=== PATIENT | male | born 1985 | race Caucasian/White ===

== ENCOUNTER 2018-03-27 20:10 | Emergency (ER) | payer OTHER, MEDICAID, SELFPAY ==
[2018-03-27 20:26] VITALS: BP 136/86; PULSE 110; RESP 20; TEMP 37; O2SAT 95; BMI 25.0
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
[2018-03-27 21:30] VITALS: BP 144/71; PULSE 117; O2SAT 94
[2018-03-27 22:08] VITALS: PULSE 98; O2SAT 96
== END 2018-03-27 22:09 | disposition home or self-care (01) ==
PROVIDERS: Emergency Provider Nurse Practitioner Family
DX: S01.01XA Laceration without foreign body of scalp, initial encounter (principal); S06.0X9A Concussion with loss of consciousness of unspecified duration, initial encounter; V18.4XXA Pedal cycle driver injured in noncollision transport accident in traffic accident, initial encounter
CPT/HCPCS: 12002; 70450; 72125; 99283; 99284

== ENCOUNTER → 2018-11-26 11:46 | Outpatient (CLI) | payer OTHER, MEDICAID, SELFPAY | PROVIDERS: Visit Provider Physician Assistant | DX: B99.9 Unspecified infectious disease (principal) | CPT/HCPCS: 87070; 87077; 87147; 87186; 87205 ==

== ENCOUNTER 2019-03-19 08:10 | Emergency (ER) | payer OTHER, MEDICAID, SELFPAY ==
[2019-03-19 08:17] VITALS: BP 125/45; PULSE 56; RESP 18; TEMP 36.4; O2SAT 95
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
== END 2019-03-19 08:50 | disposition home or self-care (01) ==
PROVIDERS: Emergency Provider Emergency Medicine
DX: L02.414 Cutaneous abscess of left upper limb (principal)
CPT/HCPCS: 99282; 99283

== ENCOUNTER 2019-03-20 09:18 | Emergency (ER) | payer OTHER, MEDICAID, SELFPAY ==
[2019-03-20 09:28] VITALS: BP 124/75; PULSE 95; RESP 62; TEMP 36.8; O2SAT 95
[2019-03-20] MEDS: SODIUM CHLORIDE 0.9% 1,000 ML 1000 ML IV (09:53)
--- NOTE | 2019-03-20 09:54 | ED_ITS ---
HPI - Skin/Abscess/Foreign Bdy General Chief complaint: Skin/Abscess/Foreign Body Stated complaint: Infection Lt arm Time Seen by Provider: 03/20/19 09:19 Source: patient Mode of arrival: ambulatory Limitations: no limitations History of Present Illness HPI narrative: Patient is a 33-year-old male who presents with streaking up his left arm. Actually saw and evaluated him yesterday for an abscess which was obtained eat. He has now had 3 doses of Bactrim. This morning he noticed red streaking up his arm into his axilla. He denies any fevers or sweats. Unfortunately no culture was taken yesterday off it with a small abscess. He is not exactly sure when the streaking started as he was wearing a sweater all day. He is complaining that has arm aches. MD complaint: rash Location: LUE Context: none Associated symptoms: denies other symptoms Related Data Previous Rx's Medication Instructions Recorded sulfamethoxazole-trimethoprim 1 tab PO BID 7 Days #14 tab 03/19/19 [Bactrim DS] Allergies Allergy/AdvReac Type Severity Reaction Status Date / Time oxycodone [From PERCOCET] Allergy Intermediate Swollen, Verified 03/20/19 09:32 hives, itchy acetaminophen [From VICODIN] Allergy Mild Hives Verified 03/20/19 09:32 aspirin [ASPIRIN] Allergy Mild Hives Verified 03/20/19 09:32 hydrocodone [From VICODIN] Allergy Mild Hives, Verified 03/20/19 09:32 itchy ibuprofen [IBUPROFEN] Allergy Mild hives Verified 03/20/19 09:32 shellfish derived Allergy Mild Hives Verified 03/20/19 09:32 [SHELLFISH DERIVED] Review of Systems Review of Systems ROS Unobtainable: All systems reviewed & are unremarkable except as noted in HPI and below Constitutional Denies chills, Denies fever(s), Denies lethargy and Denies weakness Eyes Denies change in vision, Denies eye discharge, Denies irritation and Denies loss of vision Cardiovascular Denies chest pain, Denies irregular heart rhythm, Denies lightheadedness, Denies palpitations, Denies dyspnea, Denies dyspnea on exertion and Denies orthopnea Respiratory Denies cough, Denies dyspnea, Denies dyspnea on exertion and Denies wheezing Gastrointestinal Gastrointestinal: Denies abdominal pain, Denies change in bowel habits, Denies diarrhea, Denies nausea and Denies vomiting Genitourinary Denies hematuria, Denies flank pain, Denies urinary incontinence and Denies urinary urgency Musculoskeletal Denies back pain, Denies muscle weakness, Denies numbness and Denies tingling Integumentary/Breasts Reports as per HPI Neurologic Denies loss of vision, Denies numbness, Denies tingling and Denies weakness Endocrine Denies palpitations Allergic/Immunologic Denies wheezing [facility] Medical History Patient denies significant medical history (Acute) Social History Smoking Status: Former smoker alcohol intake: current Social History Smoking Status: Former smoker alcohol intake: current Exam Initial Vital Signs Initial Vital Signs: Vital Signs Temperature 98.3 F 03/20/19 09:28 Pulse Rate 95 H 03/20/19 09:28 Respiratory Rate 62 H 03/20/19 09:28 Blood Pressure 124/75 03/20/19 09:28 Pulse Oximetry 95 03/20/19 09:28 GENERAL: Well-appearing, well-nourished and in no acute distress. HEENT: Head atraumatic,EOMI, pupils reactive, face symmetric, moist mucous membranes CARDIOVASCULAR: Regular rate and rhythm without murmurs, rubs or gallops. RESPIRATORY: Breath sounds equal bilaterally, no wheezes rales or rhonchi. ABDOMEN: Soft, nontender. Normoactive bowel sounds all 4 quadrants. No guarding or rebound. EXTREMITIES: Normal range of motion, no clubbing or edema. Neurovascularly intact NEUROLOGICAL: Alert and oriented x4.Normal gait and speech. Cranial nerves II through XII grossly intact. SKIN: Abscess still noted on right wrist area. He does have some gross pus at the site. Culture now taken. He now has streaking of up the medial side into his axilla. Course Orders Ordered: ED Orders 03/20/19 09:30 Wound Culture and Gram Stain Stat 03/20/19 09:35 Partial Thromboplastin Time Stat Prothrombin Time INR Stat 03/20/19 09:41 Complete Blood Count AUTO DIFF Stat Comprehensive Metabolic Panel Stat Lactate (Lactic Acid) Stat Lipase Stat Procalcitonin Stat 03/20/19 10:18 Blood Culture Stat Discontinued Medications Diphenhydramine HCl (Benadryl) 25 mg IV NOW ONE Stop: 03/20/19 11:39 Last Admin: 03/20/19 11:45 Dose: 25 mg Sodium Chloride (Normal Saline 0.9%) 1,000 mls @ 1,000 mls/hr IV BOLUS ONE Stop: 03/20/19 10:34 Last Infusion: 03/20/19 10:55 Dose: 0 mls/hr Admin: 03/20/19 09:53 Dose: 1,000 mls/hr Vancomycin HCl 1,250 mg/ (Sodium Chloride) 250 mls @ 250 mls/hr IV NOW ONE Stop: 03/20/19 09:45 Last Infusion: 03/20/19 11:50 Dose: 0 mls/hr Admin: 03/20/19 10:38 Dose: 250 mls/hr Methylprednisolone (Solu-Medrol 125 Mg Vial) 125 mg IV NOW ONE Stop: 03/20/19 12:06 Last Admin: 03/20/19 12:06 Dose: 125 mg Vital Signs - 8 hr 03/20/19 09:28 03/20/19 12:15 Temperature 98.3 F Pulse Rate 95 H 84 Respiratory Rate 62 H 14 Blood Pressure 124/75 Blood Pressure [Right Arm] 125/70 Pulse Oximetry 95 98 MDM - Skin/Abscess/Foreign Bdy Lab Data Attestation: I reviewed the patient's lab results. Result diagrams: 03/20/19 09:41 03/20/19 09:41 Lab Results 03/20/19 03/20/19 03/20/19 Range/Units 09:41 09:41 09:41 WBC 7.9 (4.5-11.0) X10^3/uL RBC 5.18 (4.5-5.9) X10^6/uL Hgb 15.0 (13.5-17.5) g/dL Hct 45.5 (41-53) % MCV 87.7 (80-100) fL MCH 29.0 (26-34) PG MCHC 33.1 (30-36) % RDW 14.0 (11.6-14.8) % Plt Count 230 (150-400) X10^3/uL Neut % (Auto) 79.5 H (50-75) % Lymph % (Auto) 10.2 L (25-40) % [place] % (Auto) 8.5 (3-14) % Eos % (Auto) 1.3 L (2-4) % Baso % (Auto) 0.5 (0-2) % Neut # (Auto) 6300 (3149-9703) /uL Lymph # (Auto) 800 L (5927-1353) /uL [place] # (Auto) 700 (0-900) /uL Eos # (Auto) 100 (0-450) /uL Baso # (Auto) 0 (0-100) /uL Sodium 142 (137-145) mmol/L Potassium 4.3 (3.4-5.1) mmol/L Chloride 104 (98-107) mmol/L Carbon Dioxide 27 (22-32) mmol/L BUN 14 (9-20) mg/dL Creatinine 1.10 (0.66-1.25) mg/dL Estimated GFR > 60.0 (>60) mL/min BUN/Creatinine Ratio 12.7 (6-22) Glucose 103 H (70-100) mg/dL Lactate (0.7-2.1) mmol/L Calcium 9.5 (8.4-10.2) mg/dL Total Bilirubin 0.6 (0.2-1.3) mg/dL AST 25 (17-59) IU/L ALT 19 L (21-72) IU/L Alkaline Phosphatase 94 (38-126) U/L Total Protein 8.0 (6.3-8.2) g/dL Albumin 4.5 (3.5-5.0) g/dL Globulin 3.5 (1.7-4.1) g/dL Albumin/Globulin Ratio 1.3 (1.0-2.8) Lipase 100 (23-300) U/L Procalcitonin < 0.05 (<0.5) ng/mL 03/20/19 Range/Units 09:41 WBC (4.5-11.0) X10^3/uL RBC (4.5-5.9) X10^6/uL Hgb (13.5-17.5) g/dL Hct (41-53) % MCV (80-100) fL MCH (26-34) PG MCHC (30-36) % RDW (11.6-14.8) % Plt Count (150-400) X10^3/uL Neut % (Auto) (50-75) % Lymph % (Auto) (25-40) % [place] % (Auto) (3-14) % Eos % (Auto) (2-4) % Baso % (Auto) (0-2) % Neut # (Auto) (5732-9902) /uL Lymph # (Auto) (2420-8180) /uL [place] # (Auto) (0-900) /uL Eos # (Auto) (0-450) /uL Baso # (Auto) (0-100) /uL Sodium (137-145) mmol/L Potassium (3.4-5.1) mmol/L Chloride (98-107) mmol/L Carbon Dioxide (22-32) mmol/L BUN (9-20) mg/dL Creatinine (0.66-1.25) mg/dL Estimated GFR (>60) mL/min BUN/Creatinine Ratio (6-22) Glucose (70-100) mg/dL Lactate 0.8 (0.7-2.1) mmol/L Calcium (8.4-10.2) mg/dL Total Bilirubin (0.2-1.3) mg/dL AST (17-59) IU/L ALT (21-72) IU/L Alkaline Phosphatase (38-126) U/L Total Protein (6.3-8.2) g/dL Albumin (3.5-5.0) g/dL Globulin (1.7-4.1) g/dL Albumin/Globulin Ratio (1.0-2.8) Lipase (23-300) U/L Procalcitonin (<0.5) ng/mL MDM Narrative Medical decision making narrative: Patient is not septic he has gotten 1 dose of IV vancomycin in the emergency department. A work again tomorrow I recommended that he return tomorrow for re-evaluation 1st thing in the morning. He agrees to come back. Wound culture pending and blood cultures pending. Patient did get red man syndrome with vancomycin. I his entire abdomen started turning red. He was given Solu-Medrol and Benadryl. However this was not noted to vancomycin arm done. Discharge Plan Departure Patient Disposition: Home Clinical Impression: Cellulitis Qualifiers: Site of cellulitis: extremity Site of cellulitis of extremity: upper extremity Laterality: left Qualified Code(s): L03.114 - Cellulitis of left upper limb Discharge Date/Time: 03/20/19 12:22 Interventions: ED Discharge Assessment Last Done: 03/20/19 12:21 Instructions: DI for Cellulitis -- Adult Activity Restrictions/Additional Instructions: *You have been diagnosed with cellulitis left *What to do: You to return tomorrow for evaluation 1st thing in the morning around 7:00 a.m.. *Continue to take medications as directed Continue Bactrim as previously prescribed *Follow up with your primary care provider in 2-3 days *Return to ER if you should have fever, worsening redness or any new, worsening or concerning symptoms Prescriptions: No Action sulfamethoxazole-trimethoprim [Bactrim DS] 800-160 mg tablet 1 tab PO BID 7 Days Qty: 14 RF: 0
[2019-03-20 10:03] LABS: Add Manual Diff / Slide Review NO; Basophils Absolute Auto 0 /uL (0-100); Basophils Percent Auto 0.5 % (0-2); Eosinophils Absolute Auto 100 /uL (0-450); Eosinophils Percent Auto 1.3 % (2-4); Hematocrit 45.5 % (41-53); Lymphocytes Absolute Auto 800 /uL (1100-4500); Lymphocytes Percent Auto 10.2 % (25-40); Mean Corpuscular HGB Conc 33.1 % (30-36); Mean Corpuscular Volume 87.7 fL (80-100); Monocytes Absolute Auto 700 /uL (0-900); Monocytes Percent Auto 8.5 % (3-14); Neutrophils Absolute Auto 6300 /uL (1500-7000); Neutrophils Percent Auto 79.5 % (50-75); Platelet Count 230 X10^3/uL (150-400); Red Blood Cell Count 5.18 X10^6/uL (4.5-5.9); White Blood Cell Count 7.9 X10^3/uL (4.5-11.0)
[2019-03-20 10:09] LABS: Lactate (Lactic Acid) 0.8 mmol/L (0.7-2.1)
[2019-03-20 10:12] LABS: Alanine Aminotransferase 19 IU/L (21-72); Albumin 4.5 g/dL (3.5-5.0); Albumin Globulin Ratio 1.3 (1.0-2.8); Alkaline Phosphatase 94 U/L (38-126); Aspartate Aminotransferase 25 IU/L (17-59); BUN Creatinine Ratio 12.7 (6-22); Bilirubin Total 0.6 mg/dL (0.2-1.3); Blood Urea Nitrogen 14 mg/dL (9-20); Calcium 9.5 mg/dL (8.4-10.2); Carbon Dioxide 27 mmol/L (22-32); Chloride 104 mmol/L (98-107); Estimated Glomerular Filt Rate > 60.0 mL/min (>60); Globulin 3.5 g/dL (1.7-4.1); Glucose 103 mg/dL (70-100); HEMOLYSIS < 15 (0-50); Lipase 100 U/L (23-300); Potassium 4.3 mmol/L (3.4-5.1); Sodium 142 mmol/L (137-145)
[2019-03-20 10:34] LABS: Procalcitonin < 0.05 ng/mL (<0.5)
[2019-03-20] MEDS: VANCOMYCIN 1,250 MG in SODIUM CHLORIDE 0.9% 250 ML IV (10:38)
[2019-03-20] MEDS: diphenhydrAMINE 50 MG/ML VIAL 25 MG IV (11:45)
[2019-03-20] MEDS: methylPREDNISolone 125 MG/2 ML VIAL IV (12:06)
[2019-03-20 12:15] VITALS: BP 125/70; PULSE 84; RESP 14; O2SAT 98
== END 2019-03-20 12:22 | disposition home or self-care (01) ==
PROVIDERS: Emergency Provider Emergency Medicine
DX: L03.114 Cellulitis of left upper limb (principal)
CPT/HCPCS: 36415; 36591; 80053; 83605; 83690; 84145; 85025; 87040; 87070; 87075; 87077; 87186; 87205; 96361; 96365; 96375; 99283; 99284; J1200; J2930

== ENCOUNTER 2020-02-18 10:50 | Emergency (ER) | payer OTHER, MEDICAID, SELFPAY ==
--- NOTE | 2020-02-18 10:56 | DI.RAD.S_ITS ---
PROCEDURE: XR HAND RT MIN 3V INDICATIONS: table saw TECHNIQUE: 3 views of the hand(s) acquired. COMPARISON: None. FINDINGS: Bones: No dislocations. Carpal bones are normally aligned. No suspicious bony lesions. There is crush injury to the distal tuft of the fourth digit, best seen on the lateral projection, with overlying soft tissue swelling but no foreign body Soft tissues: No suspicious soft tissue calcifications. IMPRESSION: Crush injury, comminuted distal tuft fracture fourth distal phalanx. No foreign body. Dictated by: Ej Silva M.D. on 02/18/2020 at 11:22 Approved by: Ej Silva M.D. on 02/18/2020 at 11:22
[2020-02-18 10:57] VITALS: BP 114/53; PULSE 53; RESP 18; TEMP 36.5; O2SAT 100; BMI 27.3
--- NOTE | 2020-02-18 11:11 | ED.UPPEXIN ---
HPI - Extremity Injury (Upper) <DANIELLA Arteaga - Last Filed: 02/18/20 12:54> General Chief Complaint: Extremity Injury, Upper Stated Complaint: right hand fingers cut with saw Time Seen by Provider: 02/18/20 11:00 Source: patient Mode of arrival: Wheelchair Limitations: no limitations History of Present Illness HPI narrative: 34yo male presents to the ED for R anger injuries. Patient states he was using a table some when he cut his right 2nd, 3rd, and 4th fingers. Patient states he was cutting a fence when he reached crust his son in cut his fingers. Patient states I applied pressure to the area immediately and was taken to the hospital. She states the pain was significant and he vomited 2-[address] He denies any numbness, tingling, other injuries, head injury, elbow pain, wrist pain, or any other concerns. He denies taking any blood thinners. 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 Related Data Previous Rx's Medication Instructions Recorded cephalexin 500 mg PO QID 7 Days #28 cap 02/18/20 tramadol 50 mg PO Q8H PRN #7 tab 02/18/20 Allergies Allergy/AdvReac Type Severity Reaction Status Date / Time oxycodone [From PERCOCET] Allergy Intermediate Swollen, Verified 02/18/20 10:57 hives, itchy acetaminophen [From VICODIN] Allergy Mild Hives Verified 02/18/20 10:57 aspirin [ASPIRIN] Allergy Mild Hives Verified 02/18/20 10:57 hydrocodone [From VICODIN] Allergy Mild Hives, Verified 02/18/20 10:57 itchy ibuprofen [IBUPROFEN] Allergy Mild hives Verified 02/18/20 10:57 shellfish derived Allergy Mild Hives Verified 02/18/20 10:57 [SHELLFISH DERIVED] Review of Systems <DANIELLA Arteaga - Last Filed: 02/18/20 12:54> Review of Systems Narrative: REVIEW OF SYSTEMS: GENERAL: Denies fever or chills. HENT: Denies head trauma. EYE: Denies double vision or vision loss. CARDIOVASCULAR: Denies syncope. MUSCULOSKELETAL: Denies weakness, or deformities. INTEGUMENTARY: Complains of of lacerations to right pointer, middle, and ring finger. NEURO: Denies numbness or tingling. Patient History <DANIELLA Arteaga - Last Filed: 02/18/20 12:54> Medical History Patient denies significant medical history (Acute) Social History Smoking Status: Current every day smoker alcohol intake: current Smoking Status: Current every day smoker alcohol intake frequency: holidays/special occasions only Substance Use Type: marijuana Exam <DANIELLA Arteaga - Last Filed: 02/18/20 12:54> Initial Vital Signs Initial Vital Signs: Vital Signs Temperature 97.7 F 02/18/20 10:57 Pulse Rate 53 L 02/18/20 10:57 Respiratory Rate 18 02/18/20 10:57 Blood Pressure 114/53 L 02/18/20 10:57 Pulse Oximetry 100 02/18/20 10:57 PHYSICAL EXAMINATION: GENERAL: Well groomed, alert, and cooperative. Answers questions promptly and appropriately. Vital signs noted. HENT: Normocephalic, atraumatic. RESPIRATORY: Normal respiratory rate, trachea midline, airway patent. No stridor, nasal flaring or accessory muscle use. MUSCULOSKELETAL: Normal gait and coordination. Equal tone and mass bilaterally. EXTREMITIES: CMS intact. Moves all extremities. SKIN: Warm, dry, soft, appropriate color for ethnicity. Multiple avulsions noted to distal palmar aspect of 2nd, 3rd, and 4th digits. Index finger with 2-3 flap skin, 1 suture placed. Middle finger with a 2-3 laceration is approximately 1-3cm, 2 sutures placed. Multiple flaps of skin and avulsion. 4th finger with approximately 3 cm avulsion to tip of palmar aspect of finger not involving the nail, no sutures placed. No nail involvement to any fingers, no sublingual hematoma. Distal sensation intact, patient is able to bend and extend fingers against resistance. NEURO: Alert and Oriented X 3. Good coordination. PSYCH: Appropriate affect and mood. <Daniel Russell DO - Last Filed: 02/18/20 13:04> Initial Vital Signs Initial Vital Signs: Vital Signs Temperature 97.7 F 02/18/20 10:57 Pulse Rate 53 L 02/18/20 10:57 Respiratory Rate 18 02/18/20 10:57 Blood Pressure 114/53 L 02/18/20 10:57 Pulse Oximetry 100 02/18/20 10:57 Procedures <DANIELLA Arteaga - Last Filed: 02/18/20 12:54> Laceration Repair Laceration 1: Site: hand Side (If applicable): right Size (cm): 3 Description: linear, flap and irregular Depth: simple, single layer Local Anesthetic: bupivacaine 0.5% Amount of anesthesia used (mL): 10 Pre-repair: irrigated extensively Skin layer closed with: nylon (And Steri-Strips applied) Size (cm): 5-0 Number of sutures: 3 Technique: simple, interrupted Subcutaneous layer closed with: vicryl Course <DANIELLA Arteaga - Last Filed: 02/18/20 12:54> Course Course Narrative: Patient's wound irrigated extensively with over 800ml of normal saline. Sutures applied per procedure note. Orders Ordered: ED Orders 02/18/20 10:56 XR hand RT min 3V Stat Discontinued Medications Bupivacaine HCl (Sensorcaine 0.5%) 5 ml SUBCUT NOW ONE Stop: 02/18/20 11:35 Last Admin: 02/18/20 11:35 Dose: 5 ml Documented by: OBI Lidocaine HCl (Xylocaine 1% (Pf)) 4 ml INJ NOW ONE Stop: 02/18/20 11:01 Last Admin: 02/18/20 11:34 Dose: Not Given Documented by: OBI Consultations Consultation #1: Patient staffed with Dr. Russell discussed injuries and plan of care. Vital Signs Vital signs: Vital Signs - 8 hr 02/18/20 10:57 02/18/20 12:16 02/18/20 12:41 Temperature 97.7 F Pulse Rate 53 L 45 L 56 L Respiratory Rate 18 18 Blood Pressure 114/53 L 105/56 L Blood Pressure [Left Arm] 110/64 Pulse Oximetry 100 99 100 <Daniel Russell DO - Last Filed: 02/18/20 13:04> Orders Ordered: ED Orders 02/18/20 10:56 XR hand RT min 3V Stat Discontinued Medications Bupivacaine HCl (Sensorcaine 0.5%) 5 ml SUBCUT NOW ONE Stop: 02/18/20 11:35 Last Admin: 02/18/20 11:35 Dose: 5 ml Documented by: OIB Lidocaine HCl (Xylocaine 1% (Pf)) 4 ml INJ NOW ONE Stop: 02/18/20 11:01 Last Admin: 02/18/20 11:34 Dose: Not Given Documented by: OBI Vital Signs Vital signs: Vital Signs - 8 hr 02/18/20 10:57 02/18/20 12:16 02/18/20 12:41 Temperature 97.7 F Pulse Rate 53 L 45 L 56 L Respiratory Rate 18 18 Blood Pressure 114/53 L 105/56 L Blood Pressure [Left Arm] 110/64 Pulse Oximetry 100 99 100 MDM - Extremity Injury (Upper) <Julia FoxDANIELLA - Last Filed: 02/18/20 12:54> Medical Records Attestation: I reviewed the patient's medical records. Lab Data Attestation: I reviewed the patient's lab results. Imaging Data Extremity x-ray #1: Radiologist's Impression: [address] [address] XRay Report Signed Patient: Joselito Engle WMR#: [id number] : 1985Acct:[id number] Age/Sex: 34 / MDate of Service: 02/18/20 Loc: ED Accession Number: [id number] Procedure: XR hand RT min 3V Ordering Provider: Daniel Russell D.O. PROCEDURE: XR HAND RT MIN 3V INDICATIONS: table saw TECHNIQUE: 3 views of the hand(s) acquired. COMPARISON: None. FINDINGS: Bones: No dislocations. Carpal bones are normally aligned. No suspicious bony lesions. There is crush injury to the distal tuft of the fourth digit, best seen on the lateral projection, with overlying soft tissue swelling but no foreign body Soft tissues: No suspicious soft tissue calcifications. IMPRESSION: Crush injury, comminuted distal tuft fracture fourth distal phalanx. No foreign body. Dictated by: jE Silva M.D. on 02/18/2020 at 11:22 Approved by: Ej Silva M.D. on 02/18/2020 at 11:22 [facility] Narrative Medical decision making narrative: 34y male presents emergency department for multiple avulsions and lacerations to his right finger from a saw. Patient has a tuft fracture on x-ray. Sutures were applied to the wounds, due to multiple avulsions and lacerations, Steri-Strips were applied to hold it in place. Bleeding was controlled with light pressure. Wound was irrigated extensively due to nature the wound. Patient states his last Tdap was approximately year ago, no need for ABS dating Tdap at this time. Due to open fracture, patient was placed on antibiotics. Patient seemed to tolerate procedure well but was a fast metabolism of bupivacaine as patient was given tramadol which he states he has taken before without an allergic reaction Patient was encouraged to follow up with his primary care provider in 1-2 weeks for further evaluation. He was counseled about providing infection, wound cleansing, and follow-up. Patient agreed to plan of care verbalized understanding. Discharge Plan Departure Patient Disposition: Home Clinical Impression: Open fracture of tuft of distal phalanx of finger Finger laceration Qualifiers: Encounter type: initial encounter Finger: unspecified finger Damage to nail status: without damage Foreign body presence: without foreign body Laterality: right Qualified Code(s): S61.219A - Laceration without foreign body of unspecified finger without damage to nail, initial encounter Discharge Date/Time: 02/18/20 12:44 Instructions: DI for Laceration Repair, DI for Finger Fracture Activity Restrictions/Additional Instructions: Thank you for entrusting me with your care today. As discussed, you have a fracture of your ring finger. Please leave the splint in place for the next 4 weeks. I placed 2 sutures in your middle finger and 1 suture in your index finger, these need to be removed in 10-14 days. I have also Steri-Strips on your wound, these will fall off in the next week. Do not pull off the Steri-Strips, if there is a loose any may cut off the loose an. Keep the dressing in place for the next 24 hours. After 24 hours, you may remove the dressing and wash the area gently with soap and water. Do not apply bacitracin for the next 36 hours, after that you may use bacitracin or Neosporin twice a day. Do not soak your wound in any dirty water such as a hot tub, camacho, or dirty dishwater. I prescribed you pain medication, this is a narcotic, do not drive while taking this medication. Do not drink alcohol while taking this medication. I have also prescribed you an antibiotic, please take this as directed to prevent infection. This medication was sent to [facility] in [place]. No foreign bodies were found in your wound today. While there is low-risk for infection at this time, retained foreign bodies and infection are always possible with any cut or break in the skin. Please monitor the wound closely and be re-evaluated immediately if you develop any signs of infection such as pus, increasing redness, increasing pain, fevers, or any other concerns. Follow-up with a primary care provider in 1-2 weeks for further evaluation. Prescriptions: New tramadol 50 mg tablet 50 mg PO Q8H PRN (Reason: pain) Qty: 7 RF: 0 cephalexin 500 mg capsule 500 mg PO QID 7 Days Qty: 28 RF: 0 <Daniel Russell, DO - Last Filed: 02/18/20 13:04> Cosign ED Attending Cosignature Attestation: Dr Russell Co-Sign Statement: I was available for consultation during this patient's emergency department visit. This chart is signed by myself for administrative purposes only. I did not have direct contact with this patient during this visit. They were seen independently by the APC.
[2020-02-18] MEDS: BUPIVACAINE 0.5% MDV 5 ML SUBCUT (11:35)
[2020-02-18 12:16] VITALS: BP 110/64; PULSE 45; RESP 18; O2SAT 99
[2020-02-18 12:41] VITALS: BP 105/56; PULSE 56; O2SAT 100
== END 2020-02-18 12:44 | disposition home or self-care (01) ==
PROVIDERS: Emergency Provider Nurse Practitioner
DX: S62.664B Nondisplaced fracture of distal phalanx of right ring finger, initial encounter for open fracture (principal); W29.8XXA Contact with other powered hand tools and household machinery, initial encounter
CPT/HCPCS: 12002; 73130; 99283

== ENCOUNTER → 2020-12-21 10:52 | Outpatient (CLI) | payer OTHER, MEDICAID, SELFPAY ==
[2020-12-21] MEDS: COVID-19 VACC #1, MRNA(MOD) 100 MCG/0.5 ML VIAL IM (11:09)
== END ==
PROVIDERS: PCP Internal Medicine; Visit Provider Internal Medicine
DX: Z23 Encounter for immunization (principal)
CPT/HCPCS: 0011A; 91301

== ENCOUNTER → 2021-01-18 11:04 | Outpatient (CLI) | payer OTHER, MEDICAID, SELFPAY ==
[2021-01-18] MEDS: COVID-19 VACC #2, MRNA(MOD) 100 MCG/0.5 ML VIAL IM (11:10)
== END ==
PROVIDERS: PCP Internal Medicine; Visit Provider Internal Medicine
DX: Z23 Encounter for immunization (principal)
CPT/HCPCS: 0012A; 91301